=== PATIENT | female | born 1955 | race Caucasian/White ===

== ENCOUNTER → 2016-09-13 | Outpatient (CLI) | payer OTHER ==
[~2016-09-13] MED LIST: CYCL1DRO EACHEYE; ESTR10TA PO; HYDR200T PO; IBUP200T5 PO; LACT1CAP35 PO; LACTAID3000 UNIT PO; MULT-516 PO; OASIS EYE EACHEYE; OLOP2.5D EACHEYE; VITAMIN D PO; VITAMIN E PO; [UNRECOGNIZED DRUG - REMARK]
== END | disposition home or self-care (01) ==
LOC: CFH 08:53
PROVIDERS: ATTEND Internal Medicine Hematology & Oncology
DX: Z12.31 Encounter for screening mammogram for malignant neoplasm of breast (principal); D05.11 Intraductal carcinoma in situ of right breast; Z92.3 Personal history of irradiation; Z98.890 Other specified postprocedural states
CPT/HCPCS: G0202

== ENCOUNTER → 2016-09-18 | Outpatient (CLI) | payer OTHER | END | disposition home or self-care (01) | LOC: ROC 08:21 | PROVIDERS: ATTEND Radiology Radiation Oncology | DX: D05.11 Intraductal carcinoma in situ of right breast (principal); Z92.3 Personal history of irradiation | CPT/HCPCS: 99213; G0463 ==

== ENCOUNTER → 2017-04-09 | Outpatient (CLI) | payer OTHER ==
[~2017-04-09] MED LIST changes: +GADOBUTROL 7.5 MMOL/7.5 ML VIAL ONE; +IBUP-1484 PO; -IBUP200T5 PO
== END | disposition home or self-care (01) ==
LOC: CFH 09:02
PROVIDERS: ATTEND Registered Nurse
DX: G62.9 Polyneuropathy, unspecified (principal); J32.0 Chronic maxillary sinusitis; H70.91 Unspecified mastoiditis, right ear; H16.201 Unspecified keratoconjunctivitis, right eye; M35.01 Sjogren syndrome with keratoconjunctivitis; R76.0 Raised antibody titer; M35.9 Systemic involvement of connective tissue, unspecified
CPT/HCPCS: 70553; A9585

== ENCOUNTER → 2017-09-14 | Outpatient (CLI) | payer OTHER ==
[~2017-09-14] MED LIST changes: -GADOBUTROL 7.5 MMOL/7.5 ML VIAL ONE; -HYDR200T PO; +HYDR200T72 PO
== END | disposition home or self-care (01) ==
LOC: CFH 10:19
PROVIDERS: ATTEND Internal Medicine Hematology & Oncology
DX: Z12.31 Encounter for screening mammogram for malignant neoplasm of breast (principal); Z86.000 Personal history of in-situ neoplasm of breast
CPT/HCPCS: 77063; 77067

== ENCOUNTER → 2018-09-27 | Outpatient (CLI) | payer OTHER | END | disposition home or self-care (01) | LOC: CFH 10:29 | PROVIDERS: ATTEND Internal Medicine Hematology & Oncology | DX: Z12.31 Encounter for screening mammogram for malignant neoplasm of breast (principal); D05.11 Intraductal carcinoma in situ of right breast | CPT/HCPCS: 76641; 77063; 77067 ==

== ENCOUNTER → 2019-07-11 | Outpatient (CLI) | payer OTHER ==
[~2019-07-11] MED LIST changes: -IBUP-1484 PO; +IBUP-1902 PO
== END | disposition home or self-care (01) ==
LOC: CFH 12:44
PROVIDERS: ATTEND Internal Medicine
DX: M12.842 Other specific arthropathies, not elsewhere classified, left hand (principal); M12.841 Other specific arthropathies, not elsewhere classified, right hand; M35.00 Sjogren syndrome, unspecified

== ENCOUNTER 2019-10-01 12:13 | Outpatient (CLI) | payer MEDICARE, OTHER ==
[~2019-10-01 12:13] MED LIST changes: -OLOP2.5D EACHEYE; +OLOP2.5D12 EACHEYE
== END 2019-10-01 23:59 | disposition home or self-care (01) ==
LOC: CFH 12:13 → EDSTATUS 12:30 → CFH 23:59
PROVIDERS: ATTEND Internal Medicine Hematology & Oncology
DX: Z12.31 Encounter for screening mammogram for malignant neoplasm of breast (principal); D05.11 Intraductal carcinoma in situ of right breast
CPT/HCPCS: 76641; 77063; 77067

== ENCOUNTER → 2020-03-08 | Outpatient (CLI) | payer MEDICARE, OTHER | END | disposition home or self-care (01) | LOC: CFH 09:53 | PROVIDERS: ATTEND Internal Medicine Hematology & Oncology | DX: M85.89 Other specified disorders of bone density and structure, multiple sites (principal); D05.11 Intraductal carcinoma in situ of right breast; R92.2 Inconclusive mammogram | CPT/HCPCS: 77080 ==

== ENCOUNTER → 2020-10-18 | Outpatient (CLI) | payer MEDICARE, OTHER | END | disposition home or self-care (01) | LOC: CFH 14:01 | PROVIDERS: ATTEND Internal Medicine Hematology & Oncology | DX: Z12.31 Encounter for screening mammogram for malignant neoplasm of breast (principal); Z12.39 Encounter for other screening for malignant neoplasm of breast; D05.11 Intraductal carcinoma in situ of right breast | CPT/HCPCS: 76641; 77063; 77067 ==